=== PATIENT | female | born 1955 | race Caucasian/White ===

== ENCOUNTER → 2016-02-29 | Outpatient (CLI) | payer BC ==
[~2016-02-29] MED LIST: IOPAMIDOL (ISOVUE 370) 75 ML BTL IV ONE
--- NOTE | 2016-02-29 16:19 | CT ---
CT Coronary Angiography History: Evaluate for coronary artery disease. Family history of coronary artery disease. Abnormal EK G. Comparison: None available. Technique: Postprocessing was performed. Volume rendered images were reviewed and vessel analysis was performed of the coronary arteries. Images were obtained on a [address] scanner. With the IV administration of 170 mL Isovue-370 IV contrast, serial axial CT images were obtained through the heart utilizing t hin slice technique with retrospective and subsequently prospective gating to improve visualization o f the right coronary artery. The patient took 5 mg of metoprolol in the p.m. and a.m. prior to the st udy. Immediately prior to contrast portion of the study, sublingual nitroglycerin, 0.4 mg, was admini stered. Full [id number] reconstructed images were used for evaluation of the extracardiac tissues. At the time of the CT, the heart rate was 69 bpm. Dose reduction techniques were utilized. Findings CT Angiogram of the Coronary Arteries: The overall quality of the study is good. Visualization of the distal circumflex is limited by a small caliber of the vessel and motion. There is adequate visualization of the coronary arteries. The patient has a right dominant system wit h normal origins of the coronary arteries. Left main: No calcified or soft plaque is seen and there is no stenosis. Proximal LAD and first diagonal branch: No calcified or soft plaque is seen and there is no stenosis. Mid-distal LAD, D2 and D3 branches: No calcified or soft plaque is seen and there is no stenosis. Visualized left circumflex and its OM branches: No calcified or soft plaque is seen and there is no s tenosis. Right coronary artery and its branches: No calcified or soft plaque is seen and there is no stenosis. Cardiac Morphology: The right atrium is normal. The right ventricle is normal. The left atrium is nor mal. The left ventricle is normal. The valves are normal. Extracardiac soft tissues: The lungs are clear. No pathologically enlarged lymph nodes are identified . The aorta is normal caliber. The bones are normal for age. Impression: Normal coronary arterial system with slightly limited visualization of the distal left ci rcumflex. All measurements of stenoses are based on NASCET criteria.
== END ==
LOC: FIMAGING 07:43
PROVIDERS: ATTEND Physician Assistant
DX: I47.1 Supraventricular tachycardia (principal); R94.31 Abnormal electrocardiogram [ECG] [EKG]; Z82.49 Family history of ischemic heart disease and other diseases of the circulatory system; Z72.0 Tobacco use

== ENCOUNTER → 2016-07-25 | Outpatient (CLI) | payer BC | LOC: CIMAGING 07:11 | PROVIDERS: ATTEND Obstetrics & Gynecology | DX: Z12.31 Encounter for screening mammogram for malignant neoplasm of breast (principal); Z80.3 Family history of malignant neoplasm of breast | CPT/HCPCS: G0202 ==

== ENCOUNTER → 2017-08-04 | Outpatient (CLI) | payer BC | LOC: CIMAGING 07:58 | DX: Z12.31 Encounter for screening mammogram for malignant neoplasm of breast (principal); Z80.3 Family history of malignant neoplasm of breast ==

== ENCOUNTER → 2018-08-05 | Outpatient (CLI) | payer BC | LOC: CIMAGING 11:17 ==